=== PATIENT | male | born 1970 | race Caucasian/White ===

== ENCOUNTER 2019-04-10 11:28 | Emergency (ER) ==
[2019-04-10 11:40] VITALS: BMI 27.3
[2019-04-10] MEDS ORDERED: ATIVAN IM STA (12:00)
[2019-04-10] MEDS ORDERED: HALDOL IM STA (12:01)
[2019-04-10 16:14] VITALS: BP 112/65; TEMP 97.7
--- NOTE | 2019-04-10 17:32 | CT ---
EXAM: CT of the head without contrast History: Altered mental status. Technique: Multiplanar CT images through the head were obtained without the administration of IV con trast Findings: The visualized paranasal sinuses and mastoid air cells are clear in general. No acute dilan varial abnormalities. Intracranially the ventricular and cisternal spaces are normal in size, shape and configuration for a patient of this age. No dominant mass or midline shift. No hydrocephalous. Incidental perivascula r space is seen just lateral to the right basal ganglia. No acute intracranial hemorrhage or abnorma l extraaxial fluid collections. Impression: No acute intracranial process.
--- NOTE | 2019-04-10 18:45 | ED.PDOC ---
General <JARAD WARD - Last Filed: 04/10/19 22:12> Stated Complaint: ARRIVED AGITATED YELLING OBSCENITY, INSULTS AGINST POLICE AND ED STAFF IN NO ACUTE PAIN, STATED HE WILL NOT EAT HUMAN MEAT. Time Seen by Physician: 11:30 Mode of Arrival: Walk-In Information Source: Patient, Police Exam Limitations: Clinical condition Nursing and Triage Documentation Reviewed and Agree: Yes Does patient meet sepsis criteria?: No System Inflammatory Response Syndrome: Not Applicable (ARRIVAL ACCUCHECK WAS WNL ) <CRYS MORALEZ - Last Filed: 04/12/19 07:04> ED Provider: Dr. CRYS MORALEZ Chief Complaint: Behavioral Complaint Sepsis Protocol: For patient's 13 years and over: Temp is 96.8 and below OR 101 and greater Pulse >90 BPM Resp >20/minute Acutely Altered Mental Status Are patient's symptoms suggestive of a new infection, such as: -Pneumonia -Skin, Soft Tissue -Endocarditis -UTI -Bone, Joint Infection -Implantable Device -Acute Abdominal Infection -Wound Infection -Meningitis -Blood Stream Catheter Infection -Unknown Psychological Complaint Exam - Psychiatric Complaint/Exam Patient Complains Of: Present: Other (PT'S NOT FROM THE AREA HIS PSYCH HX IS NOT KNOWN) Onset/Duration: THIS AM Symptoms Are: Still present Timing: Intermittent Episodes Lasting: Hours Initial Severity: Moderate Current Severity: Mild Character: Present: Fearful, Anxious, Angry, Frustrated Aggravating: Denies: Alcohol use Associated Signs And Symptoms: Reports: Hostile Related History: Denies: Suicidal thoughts, Suicidal plan, Suicidal gestures, Homicidal thoughts, Homicidal plan, Homicidal gestures Completed Suicide Risk Factors: None Patient Accompanied By: Police Patient In Custody Of Police: Yes (POLICE) Social Isolation Present: No (POSSIBLE ) Prior Suicide Attempt: No (NOT CERTAIN) Related Surgical History: Reports: None Patient Uncooperative For Exam: Yes Mood: Present: Agitated, Anxious Appearance: Present: Unkempt Thought Process: Present: Illogical Insight: Present: Poor Memory: Impaired Judgement: Impaired Danger To Others: Yes Patient Medically Stable For: Psych evaluation Differential Diagnoses: Acute Psychosis <KIRTCRYS - Last Filed: 04/12/19 07:04> Review of Systems - Review Of Systems Constitutional: Reports: No symptoms Eyes: Reports: No symptoms Ears, Nose, Mouth, Throat: Reports: No symptoms Respiratory: Reports: No symptoms Cardiac: Reports: No symptoms GI: Reports: No symptoms : Reports: No symptoms Musculoskeletal: Reports: No symptoms Skin: Reports: No symptoms Neurological: Reports: Anxiety, Emotional problems, Cognitive dysfunction Endocrine: Reports: No symptoms Hematologic/Lymphatic: Reports: No symptoms All Other Systems: Reviewed and Negative <CRYS MORALEZ Filed: 04/12/19 07:04> Past Medical History - Past Medical History Endocrine: Reports: Unknown Cardiovascular: Reports: Unknown Respiratory: Reports: Unknown Hematological: Reports: Unknown Gastrointestinal: Reports: Unknown Genitourinary: Reports: Unknown Neuro/Psych: Reports: Unknown Musculoskeletal: Reports: Unknown Cancer: Reports: Unknown - Surgical History General Surgical History: Reports: Unknown - Family History Family History: Reports: Unknown - Social History Smoking Status: Current every day smoker Hx Substance Use: No Alcohol Screening: Occasionally <CRYS MORALEZ Filed: 04/12/19 07:04> Physical Exam - Physical Exam Appearance: Well-appearing Eyes: MALA, EOMI, Conjunctiva clear ENT: Ears normal, Nose normal, Oropharynx normal Respiratory: Airway patent, Breath sounds clear, Breath sounds equal, Respirations nonlabored Cardiovascular: RRR, Pulses normal, No rub, No murmur GI/: Soft, Nontender, No masses, Bowel sounds normal, No Organomegaly Musculoskeletal: Normal strength, ROM intact, No edema, No calf tenderness Skin: Warm, Dry, Normal color Neurological: Sensation intact, Motor intact, Reflexes intact, Cranial nerves intact, Alert, Oriented Psychiatric: Affect appropriate, Mood appropriate <CRYS MORALEZ Filed: 04/12/19 07:04> Interpretation - Radiology Interpretation Radiology Interpretation By: Radiologist Radiology Results: No acute changes Exam Interpreted: CT Scan <CRYS MORALEZ Filed: 04/12/19 07:04> Re-Evaluation - Re-Evaluation Time of Re-Evaluation: 12:00 Status: Unchanged Vital Signs Stable: Yes Pain Level: 0 Appearance: NAD Lungs: Clear Skin: Warm and Dry Neuro: Alert and Oriented X3 CV: RRR Additional Comments: STILL OCCASIONALY SCREAM'S - Re-Evaluation Time of Re-Evaluation: 18:49 Status: Unchanged Vital Signs Stable: Yes Pain Level: 0 Appearance: NAD Skin: Warm and Dry Neuro: Alert and Oriented X3 CV: RRR <CRYS MORALEZ Filed: 04/12/19 07:04> Critical Care Note - Critical Care Note Total Time (mins): 0 <CRYS MORALEZ - Last Filed: 04/12/19 07:04> Course - Course Hematology/Chemistry: 04/10/19 12:15 04/10/19 12:15 <[email or web address] - Last Filed: 04/10/19 22:12> - Course Hematology/Chemistry: 04/10/19 12:15 04/10/19 12:15 <CRYS MORALEZ - Last Filed: 04/12/19 07:04> - Course Orders, Labs, Meds: Lab Review 04/10/19 04/10/19 04/10/19 12:15 12:15 12:15 WBC 9.58 RBC 5.31 Hgb 16.0 Hct 47.8 MCV 90.0 MCH 30.1 MCHC 33.5 RDW Coeff of [place] 13.2 Plt Count 345 Immature Gran % (Auto) 0.4 Neut % (Auto) 63.8 Lymph % (Auto) 25.4 Bond % (Auto) 8.9 Eos % (Auto) 1.0 Baso % (Auto) 0.5 Immature Gran # (Auto) 0.0 Neut # (Auto) 6.1 Lymph # (Auto) 2.4 Bond # (Auto) 0.9 Eos # (Auto) 0.1 Baso # (Auto) 0.1 Sodium 143.9 Potassium 3.91 Chloride 109.0 H Carbon Dioxide 24.3 Anion Gap 14.51 BUN 12.9 Creatinine 0.77 Estimated GFR (MDRD) 107.00 BUN/Creatinine Ratio 16.75 Glucose 108.8 H Calcium 8.99 Total Bilirubin 0.44 AST 25.0 ALT 18.5 Alkaline Phosphatase 86.0 Total Protein 7.61 Albumin 4.44 Globulin 3.17 Albumin/Globulin Ratio 1.40 TSH 0.466 Free T4 1.11 Urine Color Urine Clarity Urine pH Ur Specific [place] Urine Protein Urine Glucose (UA) Urine Ketones Urine Blood Urine Nitrite Urine Bilirubin Urine Urobilinogen Ur Leukocyte Esterase Salicylate Level mg/dL < 1.00 Urine Opiates Screen Ur Oxycodone Screen Urine Methadone Screen Ur Propoxyphene Screen Acetaminophen < 10.0 L Ur Barbiturates Screen U Tricyclic Antidepress Ur Phencyclidine Scrn Ur Amphetamine Screen U Methamphetamines Scrn U Benzodiazepines Scrn Urine Cocaine Screen U Cannabinoids Screen Plasma/Serum Alcohol < 10.0 04/10/19 04/10/19 12:55 12:55 WBC RBC Hgb Hct MCV MCH MCHC RDW Coeff of [place] Plt Count Immature Gran % (Auto) Neut % (Auto) Lymph % (Auto) Bond % (Auto) Eos % (Auto) Baso % (Auto) Immature Gran # (Auto) Neut # (Auto) Lymph # (Auto) Bond # (Auto) Eos # (Auto) Baso # (Auto) Sodium Potassium Chloride Carbon Dioxide Anion Gap BUN Creatinine Estimated GFR (MDRD) BUN/Creatinine Ratio Glucose Calcium Total Bilirubin AST ALT Alkaline Phosphatase Total Protein Albumin Globulin Albumin/Globulin Ratio TSH Free T4 Urine Color Yellow Urine Clarity Clear Urine pH 7.0 Ur Specific [place] 1.025 Urine Protein Negative Urine Glucose (UA) Negative Urine Ketones Negative Urine Blood Negative Urine Nitrite Negative Urine Bilirubin Negative Urine Urobilinogen 1.0 Ur Leukocyte Esterase Negative Salicylate Level mg/dL Urine Opiates Screen Negative Ur Oxycodone Screen Negative Urine Methadone Screen Negative Ur Propoxyphene Screen Negative Acetaminophen Ur Barbiturates Screen Negative U Tricyclic Antidepress Negative Ur Phencyclidine Scrn Negative Ur Amphetamine Screen Negative U Methamphetamines Scrn Negative U Benzodiazepines Scrn Negative Urine Cocaine Screen Negative U Cannabinoids Screen Negative Plasma/Serum Alcohol Orders Category Date Time Status EKG-(ED ONLY) Stat CARDIO 04/10/19 11:45 Completed Mental Health Consult [ED MENTAL HEALTH CONSULT] .ONCE EMERGENCY 04/10/19 11: 45 Active ACETAMINOPHEN Stat LAB 04/10/19 12:15 Completed BLOOD ALCOHOL Stat LAB 04/10/19 12:15 Completed CBC W/ AUTO DIFF Stat LAB 04/10/19 12:15 Completed COMPREHENSIVE METABOLIC PANEL Stat LAB 04/10/19 12:15 Completed DRUG SCREEN, URINE, RAPID Stat LAB 04/10/19 12:55 Completed FREE T4 (FREE THYROXINE) Stat LAB 04/10/19 12:15 Completed SALICYLATE Stat LAB 04/10/19 12:15 Completed THYROID STIMULATING HORMONE Stat LAB 04/10/19 12:15 Completed URINALYSIS C & S IF INDICATED Stat LAB 04/10/19 12:55 Completed Haloperidol Lactate [Haldol] MEDS 04/10/19 12:01 Discontinued 5 mg IM ONCE STA Lorazepam Inj [Ativan] MEDS 04/10/19 12:00 Discontinued 2 mg IM ONCE STA CT HEAD W/O CONTRAST Stat RADS 04/10/19 16:45 Completed Medications Discontinued Medications Generic Name Dose Route Start Last Admin Trade Name Alirio PRN Reason Stop Dose Admin Haloperidol Lactate 5 mg 04/10/19 12:01 04/10/19 12:19 Haldol IM 04/10/19 12:02 5 mg ONCE STA Administration Lorazepam 2 mg 04/10/19 12:00 04/10/19 12:20 Ativan IM 04/10/19 12:01 2 mg ONCE STA Administration Vital Signs: Temp Pulse Resp BP Pulse Ox 04/10/19 15:00 97.7 F 69 16 112/65 96 04/10/19 11:29 98.2 F 93 H 16 172/82 H 98 Departure <JARAD WARD - Last Filed: 04/10/19 22:12> - Departure Time of Disposition: 19:00 Pt referred to PMD for follow-up: Yes IPMP verified?: No Disposition Discussed With: Patient <CRYS MORALEZ - Last Filed: 04/12/19 07:04> - Departure Disposition: TSF SHORT-TRM HOSP Discharge Problem: Problem behavior Instructions: Schizophrenia (ED) Condition: Good Additional Instructions: transfer to psych treatment facility// Allergies/Adverse Reactions: Allergies No Known Allergies Allergy (Unverified 04/10/19 11:40) Home Medications: Ambulatory Orders 1 [No Reported Medications] 04/10/19
== END 2019-04-11 00:25 | disposition short-term general hospital (02) ==
LOC: ED 11:28
DX: F69 Unspecified disorder of adult personality and behavior (principal)
CPT/HCPCS: 36415; 80053; 80306; 80307; 81001; 84439; 84443; 85025; 93005; 93010; 96372; 99285